=== PATIENT | female | born 1990 | race Caucasian/White ===

== ENCOUNTER 2020-05-24 23:01 | Emergency (ER) | payer MEDICAID ==
[~2020-05-24] VITALS: Ht 170.2 cm; Wt 108.0 kg
[2020-05-24 23:07] VITALS: BP_SYST 149
--- NOTE | 2020-05-24 23:17 | NUR ---
Patient to ER bed 06 to gown for evaluation. Side rails up. Report given to FLORIN Walker
--- NOTE | 2020-05-24 23:30 | NUR ---
ER at bedside examining patient.
--- NOTE | 2020-05-24 23:35 | NUR ---
Pt presents to the er for vaginal bumps x 2 weeks. Pt states going to urgent care and ER, was given bactrim and keflex. Pt reports pain has increased, rates 10/10. Pt states not taking any pain medication. Pt denies any d/c or foul odor.
--- NOTE | 2020-05-24 23:40 | NUR ---
I&D Procedure done by Dr. Carbajal to using sterile technique. Lidocaine 1% w/ epinephrine used. Wound not packed, wound cleaned and was given a pad w/ iodoform. Minimal bleeding noted. Wound care discussed w/ patient. Pt tolerated procedure well. discussed w/ patient need for f/u w/ primary and at home care.
[2020-05-24] MEDS ORDERED: LIDOCAINE/EPI 1% 1:100000 20 ML VIAL INJ ONE (23:51)
--- NOTE | 2020-05-25 00:11 | NUR ---
Patient given written and verbal discharge instructions and verbalizes understanding. ER MD discussed with patient the results and treatment provided. Patient in stable condition. ID arm band removed. Patient educated on pain management and to follow up with PMD. Pain Scale 5/10. Opportunity for questions provided and answered. Medication side effect fact sheet provided.
== END 2020-05-25 00:11 | disposition home or self-care (01) ==
LOC: SED 23:01
DX: N89.8 Other specified noninflammatory disorders of vagina (principal); R10.2 Pelvic and perineal pain; I10 Essential (primary) hypertension; E11.9 Type 2 diabetes mellitus without complications; J45.909 Unspecified asthma, uncomplicated; E03.9 Hypothyroidism, unspecified; Z79.4 Long term (current) use of insulin; Z79.899 Other long term (current) drug therapy
CPT/HCPCS: 81002; 81025; 99283; 99284

== ENCOUNTER 2021-04-09 17:39 | Emergency (ER) | payer MEDICAID ==
[~2021-04-09] VITALS: Ht 175.3 cm; Wt 107.5 kg
--- NOTE | 2021-04-09 17:45 | NUR ---
Placed in room 4 . Placed on cardiac catheterization technician, blood pressure machine and pulse oximeter. To gown for exam. Side rails up. Report given to FLORIN Osman.
--- NOTE | 2021-04-09 17:48 | NUR ---
PT ARRIVED TO ER WITH COMPLAINTS OF ELEVATED BLOOD GLUCOSE. PT WENT TO TODAY BECAUSE SHE FLET HER BG WAS ELEVATED. THEY TOLD HER IT WAS 367 AND SHE SHOULD GO TO ER. PT NORMALLY IS COMPLIANT WITH HER DIABETES MEDS, BUT SHE DIDNT TAKE THEM YESTERDAY, BUT DID TAKE THEM TODAY. PT IS A&OX3 AND HAS -N/V/D. PT STATES SHE FEELS SLIGHTLY DIZZY.
--- NOTE | 2021-04-09 17:49 | NUR ---
POC BG 308
[2021-04-09 17:54] VITALS: BP_SYST 125
[2021-04-09] MEDS ORDERED: ONDANSETRON HCL 4 MG/2 ML VIAL IVP ONE (18:00)
[2021-04-09] MEDS ORDERED: NACL 0.9% 1,000 ML IV ONE (18:00)
--- NOTE | 2021-04-09 18:09 | NUR ---
# 20 gauge angiocath placed to RAC. Use of asceptic technique. Opsite placed over site. Blood return noted. Blood for lab drawn from site. Flushed with 10 cc of normal saline. No evidence of infiltration noted. Patient tolerated well.
[2021-04-09 18:11] LABS: BASOPHILS # (AUTO) 0.1 K/uL (0.0-0.2); BASOPHILS % (AUTO) 0.9 % (0.0-2.0); EOSINOPHILS # (AUTO) 0.2 K/uL (0.0-0.4); EOSINOPHILS % (AUTO) 2.2 % (0.0-4.0); HEMATOCRIT 43.4 % (36-48); HEMOGLOBIN 14.4 g/dL (12.0-16.0); LYMPHOCYTES # (AUTO) 3.5 K/uL (1.0-5.5); LYMPHOCYTES % (AUTO) 41.5 % (20.5-51.5); MEAN CORPUSCULAR HEMOGLOBIN 28 pg (27-31); MEAN CORPUSCULAR HGB CONC 33 % (32-36); MEAN CORPUSCULAR VOLUME 84 fL (79.0-98.0); MONOCYTES # (AUTO) 0.5 K/uL (0.0-1.0); MONOCYTES % (AUTO) 6.3 % (1.7-9.3); NEUTROPHILS # (AUTO) 4.2 K/uL (1.8-7.7); NEUTROPHILS % (AUTO) 49.1 % (40.0-70.0); PLATELET COUNT (AUTO) 197 K/uL (130-430); WHITE BLOOD COUNT (AUTO) 8.5 K/uL (4.8-10.8)
--- NOTE | 2021-04-09 18:23 | NUR ---
ER at bedside examining patient.
[2021-04-09 18:24] LABS: BILIRUBIN,URINE NEGATIVE (NEGATIVE); BLOOD, URINE NEGATIVE (NEGATIVE); CLARITY/URINE CLEAR (CLEAR); GLUCOSE,URINE 3+ (NEGATIVE); KETONES,URINE TRACE (NEGATIVE); LEUKOCYTE ESTERASE ,URINE NEGATIVE (NEGATIVE); NITRITE, URINE NEGATIVE (NEGATIVE); PROTEIN URINE NEGATIVE (NEGATIVE); UROBILINOGEN,URINE 0.2 (0.2-1.0)
[2021-04-09 18:27] LABS: COLOR,URINE STRAW (YELLOW)
[2021-04-09 18:30] LABS: ANION GAP 10 (5-15); CALCIUM 8.8 mg/dL (8.4-11.0); CHLORIDE 101 mmol/L (98-107); CREATININE 0.64 mg/dL (0.55-1.30); GLUCOSE 298 mg/dL (70-99); SODIUM SERUM 136 mmol/L (136-145); UREA NITROGEN, BLOOD 10 mg/dL (8-21)
[2021-04-09 18:35] LABS: ALANINE AMINOTRANSFERASE 55 U/L (12-78); ALBUMIN 3.6 g/dL (3.4-4.8); ASPARTATE AMINOTRANSFERASE 18 U/L (10-37); LIPASE 212 U/L (73-393); TOTAL BILIRUBIN 0.2 mg/dL (0.0-1.0)
[2021-04-09 18:37] LABS: GFR AFRICAN AMERICAN 139 mL/min (>90)
[2021-04-09 18:38] LABS: ACETONE, SERUM NEGATIVE (NEGATIVE)
[2021-04-09 19:47] VITALS: BP_SYST 134
== END 2021-04-09 19:45 | disposition home or self-care (01) ==
LOC: SED 17:39
DX: E11.65 Type 2 diabetes mellitus with hyperglycemia (principal); R11.2 Nausea with vomiting, unspecified; R19.7 Diarrhea, unspecified; F31.9 Bipolar disorder, unspecified
CPT/HCPCS: 36415; 36600; 80053; 81003; 81025; 82009; 82803; 83690; 85025; 96361; 96374; 99283; J2405; J7030

== ENCOUNTER 2021-04-25 02:49 | Emergency (ER) | payer MEDICAID ==
[~2021-04-25] VITALS: Ht 175.3 cm; Wt 106.1 kg
[2021-04-25 02:49] VITALS: BP_SYST 128
[2021-04-25] MEDS ORDERED: NACL 0.9% 1,000 ML IV ONE (03:45)
[2021-04-25 04:36] LABS: BASOPHILS # (AUTO) 0.1 K/uL (0.0-0.2); BASOPHILS % (AUTO) 0.7 % (0.0-2.0); EOSINOPHILS # (AUTO) 0.2 K/uL (0.0-0.4); EOSINOPHILS % (AUTO) 1.8 % (0.0-4.0); HEMATOCRIT 38.9 % (36-48); HEMOGLOBIN 13.4 g/dL (12.0-16.0); LYMPHOCYTES # (AUTO) 4.5 K/uL (1.0-5.5); LYMPHOCYTES % (AUTO) 43.9 % (20.5-51.5); MEAN CORPUSCULAR HEMOGLOBIN 29 pg (27-31); MEAN CORPUSCULAR HGB CONC 34 % (32-36); MEAN CORPUSCULAR VOLUME 83 fL (79.0-98.0); MONOCYTES # (AUTO) 0.5 K/uL (0.0-1.0); MONOCYTES % (AUTO) 5.4 % (1.7-9.3); NEUTROPHILS # (AUTO) 4.9 K/uL (1.8-7.7); NEUTROPHILS % (AUTO) 48.2 % (40.0-70.0); PLATELET COUNT (AUTO) 222 K/uL (130-430); RED BLOOD CELL COUNT(AUTO) 4.66 MIL/uL (4.2-6.2); WHITE BLOOD COUNT (AUTO) 10.2 K/uL (4.8-10.8)
[2021-04-25 04:37] LABS: BILIRUBIN,URINE NEGATIVE (NEGATIVE); BLOOD, URINE NEGATIVE (NEGATIVE); CLARITY/URINE CLEAR (CLEAR); COLOR,URINE YELLOW (YELLOW); GLUCOSE,URINE 3+ (NEGATIVE); KETONES,URINE 1+ (NEGATIVE); LEUKOCYTE ESTERASE ,URINE NEGATIVE (NEGATIVE); NITRITE, URINE NEGATIVE (NEGATIVE); PROTEIN URINE NEGATIVE (NEGATIVE); UROBILINOGEN,URINE 0.2 (0.2-1.0)
[2021-04-25 05:12] LABS: POTASSIUM 4.5 mmol/L (3.5-5.1)
[2021-04-25 05:13] LABS: CALCIUM 8.4 mg/dL (8.4-11.0); CREATININE 0.66 mg/dL (0.55-1.30); TOTAL BILIRUBIN 0.4 mg/dL (0.0-1.0)
[2021-04-25 05:14] LABS: ALBUMIN 3.3 g/dL (3.4-4.8)
[2021-04-25 06:08] VITALS: BP_SYST 136
== END 2021-04-25 06:08 | disposition home or self-care (01) ==
LOC: SED 02:49
DX: E11.65 Type 2 diabetes mellitus with hyperglycemia (principal); F31.9 Bipolar disorder, unspecified
CPT/HCPCS: 36415; 36600; 80053; 81003; 82009; 82803; 82962; 85025; 96360; 99283; J7030

== ENCOUNTER 2022-05-29 00:11 | Emergency (ER) | payer MEDICAID ==
[~2022-05-29] VITALS: Ht 175.3 cm; Wt 79.4 kg
[2022-05-29 00:25] VITALS: BP_SYST 129
[2022-05-29] MEDS ORDERED: NAPR-1172 PO (00:42)
[2022-05-29] MEDS ORDERED: CEPH-548 PO (00:42)
[2022-05-29 00:55] VITALS: BP_SYST 131
== END 2022-05-29 00:55 | disposition home or self-care (01) ==
LOC: SED 00:11
DX: L02.32 Furuncle of buttock (principal); E11.9 Type 2 diabetes mellitus without complications; Z79.899 Other long term (current) drug therapy
CPT/HCPCS: 82962; 99283

== ENCOUNTER 2022-08-12 00:29 | Emergency (ER) | payer MEDICAID ==
[~2022-08-12] VITALS: Ht 175.3 cm; Wt 98.4 kg
[~2022-08-12 00:29] MED LIST: CEPH-548 PO; NAPR-1172 PO
[2022-08-12 00:42] VITALS: BP_SYST 142
[2022-08-12] MEDS ORDERED: NACL 0.9% 2,000 ML IV ONE (01:15)
[2022-08-12] MEDS ORDERED: KETOROLAC TROMETHAMINE 30 MG VIAL IVP ONE (02:00)
[2022-08-12 02:01] LABS: WHITE BLOOD COUNT (AUTO) 8.2 K/uL (4.8-10.8)
[2022-08-12 02:10] LABS: BILIRUBIN,URINE NEGATIVE (NEGATIVE); BLOOD, URINE NEGATIVE (NEGATIVE); CLARITY/URINE CLEAR (CLEAR); COLOR,URINE YELLOW (YELLOW); GLUCOSE,URINE 3+ (NEGATIVE); KETONES,URINE 1+ (NEGATIVE); LEUKOCYTE ESTERASE ,URINE NEGATIVE (NEGATIVE); NITRITE, URINE NEGATIVE (NEGATIVE); PROTEIN URINE NEGATIVE (NEGATIVE); UROBILINOGEN,URINE 0.2 (0.2-1.0)
[2022-08-12 02:19] LABS: ANION GAP 10 (5-15); CHLORIDE 94 mmol/L (98-107); UREA NITROGEN, BLOOD 14 mg/dL (8-21)
[2022-08-12 02:20] LABS: BASOPHILS # (AUTO) 0.1 K/uL (0.0-0.2); BASOPHILS % (AUTO) 1.2 % (0.0-2.0); EOSINOPHILS # (AUTO) 0.2 K/uL (0.0-0.4); EOSINOPHILS % (AUTO) 2.6 % (0.0-4.0); HEMATOCRIT 40.7 % (36-48); HEMOGLOBIN 16.5 g/dL (12.0-16.0); LYMPHOCYTES # (AUTO) 3.4 K/uL (1.0-5.5); MEAN CORPUSCULAR HEMOGLOBIN 33 pg (27-31); MEAN CORPUSCULAR HGB CONC 41 % (32-36); MEAN CORPUSCULAR VOLUME 82 fL (79.0-98.0); MONOCYTES # (AUTO) 0.4 K/uL (0.0-1.0); MONOCYTES % (AUTO) 5.5 % (1.7-9.3); NEUTROPHILS # (AUTO) 4.1 K/uL (1.8-7.7); NEUTROPHILS % (AUTO) 49.7 % (40.0-70.0); PLATELET COUNT (AUTO) 444 K/uL (130-430); RED BLOOD CELL COUNT(AUTO) 4.99 MIL/uL (4.2-6.2); RED CELL DISTRIBUTION WIDTH 13.6 % (9.0-15.0)
[2022-08-12 02:24] LABS: ALANINE AMINOTRANSFERASE -17 U/L (12-78); ALBUMIN 3.3 g/dL (3.4-4.8); ASPARTATE AMINOTRANSFERASE < 5 U/L (10-37)
[2022-08-12 02:41] LABS: CALCIUM 7.1 mg/dL (8.4-11.0); CREATININE 0.59 mg/dL (0.55-1.30)
[2022-08-12 02:58] LABS: GFR AFRICAN AMERICAN 152 mL/min (>90); GLUCOSE 541 mg/dL (70-99)
[2022-08-12 05:05] VITALS: BP_SYST 117
== END 2022-08-12 05:05 | disposition home or self-care (01) ==
LOC: SED 00:29
DX: E11.00 Type 2 diabetes mellitus with hyperosmolarity without nonketotic hyperglycemic-hyperosmolar coma (NKHHC) (principal); J02.9 Acute pharyngitis, unspecified; Z86.59 Personal history of other mental and behavioral disorders; Z79.899 Other long term (current) drug therapy; Z20.822 Contact with and (suspected) exposure to COVID-19
CPT/HCPCS: 99283; 96374; 96361; 87426; 80053; 82962; 85025; 36415; 81025; 81003; 87804 ×2; J1885; J7030

== ENCOUNTER 2023-03-03 01:39 | Emergency (ER) | payer MEDICAID ==
[~2023-03-03] VITALS: Ht 175.3 cm; Wt 103.0 kg
[2023-03-03 01:51] VITALS: BP_SYST 127
--- NOTE | 2023-03-03 02:10 | NUR ---
Patient triaged and placed in room 5. VSS and patient appears in no acute distress at this time. Accompanied by SELF , and MD notified of need for MSE.
--- NOTE | 2023-03-03 02:15 | NUR ---
PT BIB SELF FROM FACILITY, AMBULATED TO BED 5. PT A&Ox4, ABLE TO MAKE NEEDS KNOWN. PT C/O HYPERGLYCEMIA AND WOULD LIKE AN INSULIN SHOT TO CONTROL IT UNTIL SHE IS ABLE TO GET INTO HER HOUSE AT 1100. PT STATES SHE WAS DISCHARGED FROM A MENTAL FACILITY. PT DENIES N/V/D AND SOB AND CHEST PAIN. PT DENIES FEVER AND CHILLS.. SAFETY PRECAUTIONS IN PLACE.
--- NOTE | 2023-03-03 02:15 | NUR ---
ER Dr. ARRIAZA at bedside examining patient.
[2023-03-03] MEDS ORDERED: IBUP-1969 PO (02:22)
[2023-03-03] MEDS ORDERED: INSULIN REGULAR, HUMAN 100 UNITS/ML, 3 ML VIAL SUBCUT ONE (02:30)
[2023-03-03] MEDS ORDERED: INSULIN REGULAR, HUMAN 10 UNITS/0.1 ML, 3 ML VIAL ONE (02:31)
[2023-03-03 02:50] VITALS: BP_SYST 125
--- NOTE | 2023-03-03 02:50 | NUR ---
Patient given written and verbal discharge instructions and verbalizes understanding. ER DR ARRIAZA discussed with patient the results and treatment provided. Patient in stable condition. ID arm band removed. Rx of MOTRIN given. Patient educated on pain management and to follow up with PMD. Pain Scale 0/10. Opportunity for questions provided and answered. Medication side effect fact sheet provided.
== END 2023-03-03 02:50 | disposition home or self-care (01) ==
LOC: SED 01:39
DX: E11.65 Type 2 diabetes mellitus with hyperglycemia (principal); N94.6 Dysmenorrhea, unspecified; Z79.899 Other long term (current) drug therapy
CPT/HCPCS: 99283; 96372; J1815

== ENCOUNTER 2023-03-06 05:08 | Emergency (ER) | payer MEDICAID ==
[~2023-03-06] VITALS: Ht 175.3 cm; Wt 103.0 kg
[~2023-03-06 05:08] MED LIST changes: +IBUP-1969 PO
[2023-03-06 05:15] VITALS: BP_SYST 137
--- NOTE | 2023-03-06 05:15 | NUR ---
Triaged and placed patient to ER bed 8 for evaluation. Report given to JEFFERY CORDOVA for continuity of care. Bed placed in lowest position with side rails up. Instructed to notify ED staff for any changes in condition or worsening of symptoms while waiting to be seen by a provider. Patient verbalized understanding.
--- NOTE | 2023-03-06 05:30 | NUR ---
PORTABLE X-RAY DONE AT BEDSIDE.
--- NOTE | 2023-03-06 06:50 | NUR ---
DR. MANCERA AT BEDSIDE EXAMINING THE PATIENT.
[2023-03-06] MEDS ORDERED: CEPH-548 PO (07:06)
[2023-03-06 07:45] VITALS: BP_SYST 137
--- NOTE | 2023-03-06 07:46 | NUR ---
Patient given written and verbal discharge instructions and verbalizes understanding. ER MD discussed with patient the results and treatment provided. Patient in stable condition. ID arm band removed. Rx of CEPHALEXIN given. Patient educated on WOUND CARE and to follow up with PMD. Pain Scale . Opportunity for questions provided and answered. Medication side effect fact sheet provided.
== END 2023-03-06 07:46 | disposition home or self-care (01) ==
LOC: SED 05:08
DX: S90.851A Superficial foreign body, right foot, initial encounter (principal); E11.9 Type 2 diabetes mellitus without complications; Z79.899 Other long term (current) drug therapy; W25.XXXA Contact with sharp glass, initial encounter; Y93.89 Activity, other specified; Y92.89 Other specified places as the place of occurrence of the external cause; Y99.8 Other external cause status
CPT/HCPCS: 99284

== ENCOUNTER 2023-08-28 20:04 | Emergency (ER) | payer MEDICAID ==
[~2023-08-28] VITALS: Ht 175.3 cm; Wt 97.1 kg
[2023-08-28 20:17] VITALS: BP_SYST 146; PULSE 65; RESP 19; TEMP 97; O2SAT 100
[2023-08-28] MEDS ORDERED: INSU100I26 SQ (21:17)
[2023-08-28] MEDS ORDERED: INSU100I52 SQ (21:17)
== END 2023-08-28 22:00 | disposition home or self-care (01) ==
LOC: SED 20:04
DX: E11.65 Type 2 diabetes mellitus with hyperglycemia (principal); I10 Essential (primary) hypertension; Z79.4 Long term (current) use of insulin; Z79.899 Other long term (current) drug therapy
CPT/HCPCS: 82962; 99283

== ENCOUNTER 2023-10-31 16:46 | Emergency (ER) | payer MEDICAID ==
[~2023-10-31] VITALS: Ht 175.3 cm; Wt 97.1 kg
[2023-10-31 16:46] VITALS: BP_SYST 124; PULSE 102; RESP 18; TEMP 97.3; O2SAT 98
[~2023-10-31 16:46] MED LIST changes: +INSU100I26 SQ; +INSU100I52 SQ
[2023-10-31] MEDS ORDERED: IBUP-1969 PO (17:56)
== END 2023-10-31 18:00 | disposition home or self-care (01) ==
LOC: SED 16:46
DX: S86.812A Strain of other muscle(s) and tendon(s) at lower leg level, left leg, initial encounter (principal); E11.9 Type 2 diabetes mellitus without complications; I10 Essential (primary) hypertension; Z79.899 Other long term (current) drug therapy; W22.09XA Striking against other stationary object, initial encounter; Y93.89 Activity, other specified; Y92.89 Other specified places as the place of occurrence of the external cause; Y99.8 Other external cause status
CPT/HCPCS: 93971; 99284